=== PATIENT | male | born 1970 | race Hispanic/Latino ===

== ENCOUNTER 2018-02-15 15:58 | Emergency (ER) | payer BC, OTHER ==
[~2018-02-15] VITALS: Ht 170.2 cm; Wt 70.8 kg
[~2018-02-15 15:58] MED LIST: AMLODIPINE BESY10 MG PO; CALCITRIOL0.5 MCG PO; CATAPRES-TTS 21 EACH TD; CLONAZEPAM0.5 MG PO; CLONIDINE HCL0.2 MG PO; DEXILANT60 MG PO; GABAPENTIN100 MG PO; HYDRALAZINE HCL25 MG PO; LANTUS100 UNITS/ SQ; LASIX20 MG PO; LIPITOR20 MG PO; METOPROLOL TART50 MG PO; REGLAN10 MG PO; RENAGEL800 MG PO; SUCRALFATE1 GM PO
--- OUTSIDE RECORDS SUMMARY | 2018-02-15 16:01 | XMS REPORT | Clinical Summary ---
Author Author [facility]osh [facility] Organization [facility] Address Unknown Phone Unavailable Care Team Providers Care Multi Craft Maintenance Technician Name Role Phone Asked, No Pcp PCP Unavailable Allergies No Known Allergies Current Medications Prescription Sig. Disp. Refills Start End Date Status Date metoclopramide (REGLAN) Take 10 mg by mouth Active 10 MG tablet daily. metoprolol succinate XL Take 50 mg by mouth Active (TOPROL-XL) 50 mg 24 hr daily. tablet hydrALAZINE (APRESOLINE) Take 100 mg by mouth 3 Active 100 MG tablet (three) times a day. clonIDINE (CATAPRES-TTS) Place 1 patch on the skin Active 0.2 mg/24 hr once a week. sevelamer (RENVELA) 800 Take 2,400 mg by mouth 3 Active mg tablet (three) times a day with meals. promethazine (PHENERGAN) Take 25 mg by mouth as Active 25 MG tablet needed for nausea or vomiting. insulin GLARGINE (LANTUS) Inject 17 Units under the Active 100 unit/mL injection skin as needed. (vial) furosemide (LASIX) 20 mg Take 20 mg by mouth Active tablet daily. omeprazole (PriLOSEC) 40 Take 40 mg by mouth Active MG capsule daily. ergocalciferol (VITAMIN Take 50,000 Units by Active D2) 50,000 unit capsule mouth once a week. GABAPENTIN ORAL Take 1 tablet by mouth Active nightly. TRAMADOL HCL (TRAMADOL Take 1 tablet by mouth as Active ORAL) needed. FLUoxetine (PROzac) 20 MG Take 1 capsule (20 mg 30 capsule 1 08/15/19 09/14/19 capsule total) by mouth daily for 18 18 30 days. Active Problems Patient Care Coordination Note UNOS SS#: [id number] Problem Noted Date MDD (major depressive disorder), recurrent severe, without psychosis ([facility]) 08/15/2017 ESRD (end stage renal disease) on dialysis (HCC) 02/08/2017 History of diabetic gastroparesis 02/08/2017 Anemia 02/08/2017 Chronic bilateral low back pain with sciatica 02/08/2017 History of transfusion 06/07/2016 Hypertension 04/09/2010 Type 2 diabetes mellitus (HCC) 04/09/2001 Encounters Date Type Specialty Care Team Description 01/15/2018 Hospital Transplant Carlota Cavazos MD Encounter 01/11/2018 Documentation Transplant Taylor Somers Appointment (Itinerary for Kidney Transplant Waitlist Listing Class scheduled 01-15-2018 ([place]ese Class) emailed to patient & scanned in Media. ) 01/09/2018 Telephone Transplant Alexis Michelle Listing Class (Spoke to pt he confirmed he will be here on Sunday@ 1:00 pm for listing class.) 12/24/2017 Lab Lab Carlota Cavazos MD 12/19/2017 Documentation Transplant Taylor Somers PRA Kits (Patient's address updated to reflect [id number] by eugene Rosado coordinator. PRA kits requested yesterday and order edited by Myrna blair Affine. New Standing Order scanned in Media. Pt should rcvd supplieswithin 3-5 bus/days. ) 12/19/2017 Telephone Transplant Giovanna Castillo MA Patient Update Questions 12/18/2017 Abstract Transplant Taylor Somers 12/18/2017 Abstract Transplant Taylor Somers 12/18/2017 Documentation Transplant Taylor Somers PRA Kits (Requested PRA kits to be sent to patient's home address @ [address], [place] [address]. Standing Order scanned in Media. Call pt's home [phone] to inquire if he was available to come for Waitlist Listing Class. Pt states he does not speak [place]. Wll call back @ a later date with an bottom scrubber. ) 12/14/2017 Telephone Transplant Aurora Peña MA Waitlist Status Update 11/26/2017 Telephone Transplant Aurora Peña MA Txp Status Update 11/26/2017 Telephone Transplant Samra Huertas MA Donor workup 11/01/2017 Telephone Transplant Samra Huertas MA Pt's donor 11/01/2017 Documentation Transplant Luz Moreno RN SS# 10/30/2017 Telephone Transplant Aurora Peña MA Request Txp Status Update 10/04/2017 Documentation Transplant Maryam Moody 10/02/2017 Telephone Transplant Gabby Miller MA Speak with Coordinator 10/02/2017 Telephone Transplant Aster Loving MA Status Update Request 09/26/2017 Documentation Transplant Maryam Moody 09/26/2017 Documentation Transplant Michelle Nesbitt MRB packet 09/27/17 (MRB packet 09/27/17 scanned in media. ) 09/24/2017 Documentation Transplant Luz Moreno RN mrb packet 09/24/2017 Documentation Transplant Taylor Somers Kidney Transplant Evaluation Status (Per review, patient has completed kidney evaluation. Clinical placed in line to be final reviewed by Luz and possibly presented to [facility]. ) 09/17/2017 Telephone Transplant Aster Loving MA Speak to Coordinator 09/17/2017 Documentation Transplant Taylor Somers H& P : Dr. Morena Hamilton - / Renal Care - 07-16-2017 (Scanned Health & Physical Clearance Letter from Dr. Morena Crouch (nephrology) from / Renal Care dated 07-16-2017 in Media. ) 09/14/2017 Telephone Transplant Samra Huertas MA Faxing HMP 09/11/2017 Telephone Transplant Aurora Peña MA Request Status Update 09/10/2017 Documentation Transplant Taylor Somers Cardiology Clearance Letter : 08-13-2017 (Scanned Cardiology Clearance Letter dated 08-13-[address] Griffiths in Media.) 08/28/2017 Documentation Transplant Taylor Somers Urology Clearance Letter 08-14-2017 (Scanned Urology Clearance Letter dated 08-14-[address] Israel's office in Media.) 08/14/2017 Hospital Transplant Carlota Cavazos MD MDD (major depressive Encounter disorder), recurrent severe, without psychosis (Primary Dx) 08/10/2017 Telephone Transplant Aster Loving MA Itinerary Request 07/31/2017 Hospital Radiology Carlota Cavazos MD ESRD (end stage renal Encounter disease) 07/31/2017 Hospital Transplant Carlota Cavazos MD ESRD (end stage renal Encounter disease) 07/26/2017 Documentation Transplant Taylor Somers appts (Scanned Kidney Transplant Eval Appts Day 2 - 07-31-2017 & Day 3 - 08-14-2017 in Media. 07-26-2017. Apptsd emailed to spouse address @ [email or web address] ) 07/23/2017 Documentation Transplant Taylor Somers Appointment (Spk w the spouse Shama @ [phone] per pt's request regarding scheduling the remaining of Kidney Transplant Eval now that pt''s ins has been reinstated. Spouse states she has just startred a new job and would like him to be schedule patient on Tuesdays. Pt Day 2 scheduled July 31 for Cardiology Consult/Stress Test w Dr. Griffiths and CTA Abdomen/Pelvis. Called spouse back to inform her of appt date given. Spouse states appt date ok. Will also schedule Day 3 -and email both appts to spouse email ) 07/23/2017 Abstract Transplant Taylor Somers 07/20/2017 Documentation Transplant Maryam Moody 07/19/2017 Documentation Transplant Taylor Somers Updated ins info (Referred to financial supervisor to verify new ins info from BC/BS provided by patient's spouse. Once ins is verified patient will be scheduled for remaining kidney transplant evaluation (Day 2 & 3). Made a call to Merry @ [phone], /S Renal to get location and other dialysis info needed but no one answered the ph. Will try later. Also called pt's spouse Shama , no answer. Called pt's home # no answer and v/m is not set up. Will f/up with 3-5 bus/ days. ) 06/29/2017 Telephone Transplant Gabby Miller MA Updated Insurance 06/29/2017 Telephone Transplant Gabby Miller MA Scheduling 06/20/2017 Telephone Transplant Aurora Peña MA Request Status Update 05/08/2017 Orders Only Transplant Apolinar Feliciano RN ESRD (end stage renal disease) (Primary Dx) 05/07/2017 Documentation Transplant Maryam Moody 03/27/2017 Hospital Transplant Shahzad Jang MD Canceled (Scheduling Encounter Priscilla Yin Error) 03/27/2017 [facility] Radiology Carlota Cavazos MD ESRD (end stage renal Encounter disease) 03/27/2017 [facility] Radiology Carlota Cavazos MD ESRD (end stage renal Encounter disease) 03/27/2017 Hospital Transplant Shahzad Jang MD ESRD (end stage renal Encounter disease) 03/27/2017 [facility] Procedural Cardiology Carlota Cavazos MD ESRD (end stage renal Encounter disease) 03/27/2017 Hospital Transplant Shahzad Jang MD Encounter Maryam Moody 03/27/2017 Hospital Transplant Shahzad Jang MD Encounter 02/27/2017 Hospital Transplant Shahzad Jang MD No Show Encounter Priscilla Yin 02/27/2017 Hospital Transplant Shahzad Jang MD No Show Encounter 02/27/2017 Telephone Transplant Gabby Miller MA Reschedule Appointments after 02/14/2017 Family History Medical History Relation Name Comments Diabetes Maternal Grandmother Diabetes Mother Relation Name Status Comments Maternal Grandmother Mother Social History Tobacco Use Types Packs/Day Years Used Date Never Smoker Smokeless Tobacco: Never Used Sex Assigned at Date Recorded Not on file Last Filed Vital Signs Vital Sign Reading Time Taken Blood Pressure 104/60 08/14/2017 9:27 AM CDT Pulse 73 08/14/2017 9:27 AM CDT Temperature 35.9 C (96.7 F) 08/14/2017 9:27 AM CDT Respiratory Rate 16 08/14/2017 9:27 AM CDT Oxygen Saturation 98% 08/14/2017 9:27 AM CDT Inhaled Oxygen - - Concentration Weight 65.2 kg (143 lb 11.2 oz) 08/14/2017 9:27 AM CDT Height 172.7 cm (5' 8") 08/14/2017 9:27 AM CDT Body Mass Index 21.85 08/14/2017 9:27 AM CDT Plan of Treatment Health Maintenance Due Date Last Done Comments DIABETIC RETINAL EYE EXAM 1971 DIABETIC FOOT EXAM 1981 URINE MICROALBUMIN 1981 INFLUENZA VACCINE 11/07/2017 Procedures Procedure Name Priority Date/Time Associated Diagnosis Comments SINGLE ANTIGEN BEADS Routine 12/24/2017 Results for this 7:15 AM CDT procedure are in the results section. CT ANGIOGRAM ABDOMEN Routine 07/31/2017 ESRD (end stage renal Results for this PELVIS W AND OR WO 1:43 PM CDT disease) procedure are in the CONTRAST results section. C1Q CLASS 1 & 2 ANTIBODY Routine 07/31/2017 Results for this 10:00 AM CDT procedure are in the results section. HLA AUTOLOGOUS Routine 07/31/2017 Results for this CROSSMATCH, AHG 10:00 AM CDT procedure are in the results section. SINGLE ANTIGEN BEADS Routine 07/31/2017 Results for this 10:00 AM CDT procedure are in the results section. LOW RESOLUTION FULL Routine 07/31/2017 Results for this TYPING BY SSO 10:00 AM CDT procedure are in the results section. A1 ANTIGEN PATIENT TYPING Routine 07/31/2017 Results for this 10:00 AM CDT procedure are in the results section. ZZESTIMATED GFR Routine 07/31/2017 Results for this 10:00 AM CDT procedure are in the results section. ABORH - TRANSPLANT Routine 07/31/2017 ESRD (end stage renal Results for this 10:00 AM CDT disease) procedure are in the results section. PARATHYROID HORMONE Routine 07/31/2017 ESRD (end stage renal Results for this 10:00 AM CDT disease) procedure are in the results section. HSV TYPE 1/2 COMBINED AB, Routine 07/31/2017 ESRD (end stage renal Results for this IGM 10:00 AM CDT disease) procedure are in the results section. HSV 1 & 2 GLYCOPROTEIN G Routine 07/31/2017 ESRD (end stage renal Results for this AB, IGG 10:00 AM CDT disease) procedure are in the results section. HERPES SIMPLEX VIRUS BY Routine 07/31/2017 ESRD (end stage renal Results for this PCR 10:00 AM CDT disease) procedure are in the results section. JONO-SILVA VIRUS Routine 07/31/2017 ESRD (end stage renal Results for this ANTIBODY TEST 10:00 AM CDT disease) procedure are in the results section. CYTOMEGALOVIRUS AB, IGM Routine 07/31/2017 ESRD (end stage renal Results for this 10:00 AM CDT disease) procedure are in the results section. CYTOMEGALOVIRUS AB, IGG Routine 07/31/2017 ESRD (end stage renal Results for this 10:00 AM CDT disease) procedure are in the results section. HEMOGLOBIN A1C Routine 07/31/2017 ESRD (end stage renal Results for this 10:00 AM CDT disease) procedure are in the results section. LDH Routine 07/31/2017 ESRD (end stage renal Results for this 10:00 AM CDT disease) procedure are in the results section. PHOSPHORUS LEVEL Routine 07/31/2017 ESRD (end stage renal Results for this 10:00 AM CDT disease) procedure are in the results section. CREATININE LEVEL Routine 07/31/2017 ESRD (end stage renal Results for this 10:00 AM CDT disease) procedure are in the results section. FASTING GLUCOSE LEVEL Routine 07/31/2017 ESRD (end stage renal Results for this 10:00 AM CDT disease) procedure are in the results section. TRIGLYCERIDES Routine 07/31/2017 ESRD (end stage renal Results for this 10:00 AM CDT disease) procedure are in the results section. CHOLESTEROL Routine 07/31/2017 ESRD (end stage renal Results for this 10:00 AM CDT disease) procedure are in the results section. US RENAL Routine 03/27/2017 ESRD (end stage renal Results for this 12:42 PM ADMISSIONS DIRECTOR disease) procedure are in the results section. XR CHEST 2 VW Routine 03/27/2017 ESRD (end stage renal Results for this 11:32 AM ADMISSIONS DIRECTOR disease) procedure are in the results section. ECHOCARDIOGRAM 2D Routine 03/27/2017 ESRD (end stage renal Results for this COMPLETE W MMODE SPECTRAL 10:31 AM ADMISSIONS DIRECTOR disease) procedure are in the COLOR DOPPLER (01429) results section. ECG 12-LEAD Routine 03/27/2017 ESRD (end stage renal Results for this 8:49 AM ADMISSIONS DIRECTOR disease) procedure are in the results section. after 02/14/2017 Results * Single antigen beads (12/24/2017 7:15 AM) Only the most recent of 2 results within the time period is included. [facility] DEPARTMENT OF PATHOLOGY AND GENOMIC MEDICINE Single antigen beads See link below for PDF Lab [facility] DEPARTMENT OF Report PATHOLOGY AND GENOMIC MEDICINE Performing Organization Address City/State/Zipcode Phone Number [facility] DEPARTMENT OF [address] [place] [address] PATHOLOGY AND GENOMIC MEDICINE * CTA Abdomen Pelvis W And Or Wo Contrast (07/31/2017 1:43 PM) Narrative Performed At EXAM: [facility] CT ANGIOGRAM ABDOMEN PELVIS W AND OR WO CONTRAST INDICATION: N18.6 End stage renal disease, Renal Transplant Evaluation COMPARISON: None. TECHNIQUE: After administration of iodinated contrast intravenously, axial CT images of the abdomen and pelvis were obtained. Coronal and sagittal reformations were obtained. 3-D volumetric reconstructions of the arterial system was obtained. Iterative reconstruction and/or automated exposure control techniques were employed to reduce radiation dose. FINDINGS: Limited chest: Small amount of fluid and debris within the lower esophagus, which may be suggestive of gastroesophageal reflux. Top normal heart size. Calcified atherosclerotic plaque left main and proximal left anterior descending coronary arteries. Small pericardial effusion. No adenopathy visualized portions of the chest. Minimal linear opacity lingula, discoid atelectasis versus scar. Minimal bibasilar dependent atelectasis. Moderate gynecomastia bilaterally. Abdomen: Liver is normal. Status post cholecystectomy. Common bile duct is unremarkable. Pancreas is normal. Spleen is normal. Bilateral adrenals are normal. Moderate bilateral renal cortical atrophy, compatible with history of end-stage renal disease. Gastric stimulator right upper quadrant anterior abdominal subcutaneous fat. Stimulator leads along the anterior aspect of the gastric antrum. Large amount of fluid and debris within the stomach. Constellation of findings are suggestive of history of gastroparesis. Duodenum is normal. Remainder of small bowel is normal. Appendix is normal (series 2, slice 128). Surgical clip along the right anterolateral aspect of the cecum is 94). Colon is normal. Pelvis: Small amount of urine bladder limits full evaluation of bladder wall. Prostate is normal. Calcification of the vas deferens, compatible with history of diabetes/hypercalcemic state. Bilateral inguinal canals and ischiorectal fossa are normal. Musculoskeletal: Minimal degenerative changes of the thoracolumbar spine. Minimal arthrosis bilateral hips. Bone island right femoral head (series 2, slice 173). No suspicious osseous or soft tissue structures. Vascular: Descending thoracic aorta: Minimal tortuosity. Otherwise normal in caliber. Abdominal aorta: Normal course and caliber. Celiac axis: Conventional celiac arterial anatomy. Minimal calcified atherosclerotic plaque proximal common hepatic and splenic artery without significant associated luminal narrowing. Superior mesenteric artery: Normal course and caliber. Bilateral renal arteries: Solitary arteries bilaterally. Mild wall calcifications distally. Otherwise normal course and caliber. Inferior mesenteric artery: Mild wall calcification without significant luminal narrowing. Otherwise normal course and caliber. Right common iliac artery: Normal course and caliber. Right internal iliac artery: Mild to moderate wall calcification/plaque plaque greatest distally with mild multifocal luminal narrowing. Right external iliac artery: Normal in course and caliber. Moderate circumferential wall calcification of the deep inferior epigastric artery at its origin. Visualized right femoral arteries: Moderate circumferential wall calcification of the superficial and profunda femoris arteries without significant associated luminal narrowing. Left common iliac artery: Normal course and caliber. Left internal iliac artery: Mild to moderate wall calcification/plaque greatest distally with mild multifocal luminal narrowing. Left external iliac artery: Normal course and caliber. Visualized left femoral arteries: Moderate circumferential wall calcification of the superficial profunda femoris arteries without significant associated luminal narrowing. Full evaluation of systemic and portal venous structures limited by contrast bolus timing. 8 mm short axis gastrohepatic lymph node (series 2, slice 48). No abdominal, pelvic, or inguinal adenopathy. IMPRESSION: 1. Bilateral common iliac and external iliac arteries are normal without significant wall calcification, atherosclerotic plaque, dissection, or aneurysm. 2. Of moderate atrophy bilateral renal cortices. 3. Gastric stimulator right upper quadrant with leads along the anterior aspect of the gastric antrum. Large amount of fluid and debris within the stomach. Constellation findings are compatible with history of gastroparesis. 4. Small amount of fluid debris within the lower esophagus, suggestive of gastroesophageal reflux. 5. Calcified atherosclerotic plaque left main and proximal left anterior descending coronary arteries. [facility]-[id number] Procedure Note Hm Interface, Radiology Results Incoming - 07/31/2017 2:34 PM CDT EXAM: CT ANGIOGRAM ABDOMEN PELVIS W AND OR WO CONTRAST INDICATION: N18.6 End stage renal disease, Renal Transplant Evaluation COMPARISON: None. TECHNIQUE: After administration of iodinated contrast intravenously, axial CT images of the abdomen and pelvis were obtained. Coronal and sagittal reformations were obtained. 3-D volumetric reconstructions of the arterial system was obtained. Iterative reconstruction and/or automated exposure control techniques were employed to reduce radiation dose. FINDINGS: Limited chest: Small amount of fluid and debris within the lower esophagus, which may be suggestive of gastroesophageal reflux. Top normal heart size. Calcified atherosclerotic plaque left main and proximal left anterior descending coronary arteries. Small pericardial effusion. No adenopathy visualized portions of the chest. Minimal linear opacity lingula, discoid atelectasis versus scar. Minimal bibasilar dependent atelectasis. Moderate gynecomastia bilaterally. Abdomen: Liver is normal. Status post cholecystectomy. Common bile duct is unremarkable. Pancreas is normal. Spleen is normal. Bilateral adrenals are normal. Moderate bilateral renal cortical atrophy, compatible with history of end-stage renal disease. Gastric stimulator right upper quadrant anterior abdominal subcutaneous fat. Stimulator leads along the anterior aspect of the gastric antrum. Large amount of fluid and debris within the stomach. Constellation of findings are suggestive of history of gastroparesis. Duodenum is normal. Remainder of small bowel is normal. Appendix is normal (series 2, slice 128). Surgical clip along the right anterolateral aspect of the cecum is 94). Colon is normal. Pelvis: Small amount of urine bladder limits full evaluation of bladder wall. Prostate is normal. Calcification of the vas deferens, compatible with history of diabetes/hypercalcemic state. Bilateral inguinal canals and ischiorectal fossa are normal. Musculoskeletal: Minimal degenerative changes of the thoracolumbar spine. Minimal arthrosis bilateral hips. Bone island right femoral head (series 2, slice 173). No suspicious osseous or soft tissue structures. Vascular: Descending thoracic aorta: Minimal tortuosity. Otherwise normal in caliber. Abdominal aorta: Normal course and caliber. Celiac axis: Conventional celiac arterial anatomy. Minimal calcified atherosclerotic plaque proximal common hepatic and splenic artery without significant associated luminal narrowing. Superior mesenteric artery: Normal course and caliber. Bilateral renal arteries: Solitary arteries bilaterally. Mild wall calcifications distally. Otherwise normal course and caliber. Inferior mesenteric artery: Mild wall calcification without significant luminal narrowing. Otherwise normal course and caliber. Right common iliac artery: Normal course and caliber. Right internal iliac artery: Mild to moderate wall calcification/plaque plaque greatest distally with mild multifocal luminal narrowing. Right external iliac artery: Normal in course and caliber. Moderate circumferential wall calcification of the deep inferior epigastric artery at its origin. Visualized right femoral arteries: Moderate circumferential wall calcification of the superficial and profunda femoris arteries without significant associated luminal narrowing. Left common iliac artery: Normal course and caliber. Left internal iliac artery: Mild to moderate wall calcification/plaque greatest distally with mild multifocal luminal narrowing. Left external iliac artery: Normal course and caliber. Visualized left femoral arteries: Moderate circumferential wall calcification of the superficial profunda femoris arteries without significant associated luminal narrowing. Full evaluation of systemic and portal venous structures limited by contrast bolus timing. 8 mm short axis gastrohepatic lymph node (series 2, slice 48). No abdominal, pelvic, or inguinal adenopathy. IMPRESSION: 1. Bilateral common iliac and external iliac arteries are normal without significant wall calcification, atherosclerotic plaque, dissection, or aneurysm. 2. Of moderate atrophy bilateral renal cortices. 3. Gastric stimulator right upper quadrant with leads along the anterior aspect of the gastric antrum. Large amount of fluid and debris within the stomach. Constellation findings are compatible with history of gastroparesis. 4. Small amount of fluid debris within the lower esophagus, suggestive of gastroesophageal reflux. 5. Calcified atherosclerotic plaque left main and proximal left anterior descending coronary arteries. [facility]-[id number] Performing Organization Address City/State/[place]code [place] [address] * Low resolution full typing by SSO (07/31/2017 10:00 AM) [facility] DEPARTMENT OF PATHOLOGY AND GENOMIC MEDICINE Low resolution full See link below for PDF Lab [facility] DEPARTMENT OF typing by SSO Report PATHOLOGY AND GENOMIC MEDICINE Performing Organization Address City/[facility] Phone Number [facility] [place] [address] PATHOLOGY AND GENOMIC MEDICINE * C1Q class 1 & 2 antibody (07/31/2017 10:00 AM) [facility] DEPARTMENT OF PATHOLOGY AND GENOMIC MEDICINE C1Q class 1 & 2 antibody See link below for PDF Lab [facility] DEPARTMENT OF Report PATHOLOGY AND GENOMIC MEDICINE Performing Organization Address [facility] Phone Number [facility] [place] [address] PATHOLOGY AND GENOMIC MEDICINE * A1 antigen patient typing (07/31/2017 10:00 AM) A1 Antigen Patient Typing POS [facility] DEPARTMENT OF PATHOLOGY AND GENOMIC MEDICINE Performing Organization Address City/[facility] Phone Number [facility] [place] [address] PATHOLOGY AND GENOMIC MEDICINE * HSV 1 & 2 glycoprotein G Ab, IgG (07/31/2017 10:00 AM) HSV 1 glycoprotein G Ab, Positive (A) Negative [facility] DEPARTMENT OF IgG Comment: PATHOLOGY AND Positive results may indicate [facility] current or past HSV infection. For acute illness, viral PCR and IgM testing are recommended. Individuals infected with HSV may not exhibit detectable antibodies in cases of early infection. HSV 2 glycoprotein G Ab, NegativeComment: Negative: No Negative [facility] DEPARTMENT OF IgG IgG antibodies to HSV2 PATHOLOGY AND detected. [facility] Specimen Serum Performing Organization Address City/[facility] Phone Number [facility] [place] [address] PATHOLOGY AND GENOMIC MEDICINE * Jono-Silva virus antibody test (07/31/2017 10:00 AM) EBV Ab to viral capsid POSITIVE (A) Negative [facility] DEPARTMENT OF Ag, IgG PATHOLOGY AND GENOMIC MEDICINE EBV Ab to viral capsid Negative Negative [facility] DEPARTMENT OF Ag, IgM PATHOLOGY AND GENOMIC MEDICINE EBV Ab to nuclear Ag, IgG POSITIVE (A) Negative [facility] DEPARTMENT OF PATHOLOGY AND GENOMIC MEDICINE EBV Ab to early (D) Ag, POSITIVE (A) Negative [facility] DEPARTMENT OF IgG Comment: PATHOLOGY AND Interpretive Information: GENOMIC MEDICINE Infection StatusVCA_IgG No Previous_ Acute + Recent + Past + Reactivation + Infection StatusVCA_IgM No Previous_ Acute + Recent +/- Past - Reactivation +/- Infection Status EA No Previous_ Acute +/- Recent +/- Past - Reactivation + Infection Status EBNA No Previous_ Acute - Recent +/- Past + Reactivation + Specimen Serum Performing Organization Address City/[facility] Phone Number [address] [address] PATHOLOGY AND GENOMIC MEDICINE * HSV type 1/2 combined Ab, IgM (07/31/2017 10:00 AM) HSV 1/2 combined Ab, IgM 0.45 <=0.89 IV [facility] Comment: INTERPRETIVE INFORMATION: Herpes Simplex Virus Type 1 and/or 2 Antibodies, IgM by KAT 0.89 IV or Less .......... Not Detected 0.90 - 1.09 IV ........... Indeterminate- Repeat testing in 10-14 days may be helpful. 1.10 IV or Greater ....... Detected-IgM antibody to HSV detected, which may indicate a current or recent infection. However, low levels of IgM antibodies may occasionally persist for more than 12 months post-infection. Performed by [email or web address], [address] [place], [place] [id number] [email or web address] Arron Oro MD - Lab. Director Specimen Serum Performing Organization Address City/State/Zipcode Phone Number [facility] [address] [place] [address] * HLA autologous crossmatch, [facility] (07/31/2017 10:00 AM) [facility] DEPARTMENT OF PATHOLOGY AND GENOMIC MEDICINE HLA autologous crossmatch See link below for PDF Lab [facility] DEPARTMENT OF Report PATHOLOGY AND GENOMIC MEDICINE Performing Organization Address City/State/Zipcode Phone Number [facility] DEPARTMENT [address] [address] PATHOLOGY AND GENOMIC MEDICINE * Herpes simplex virus by PCR (07/31/2017 10:00 AM) Herpes virus, PCR Not-Detected Not-Detected [facility] DEPARTMENT OF PATHOLOGY AND GENOMIC MEDICINE Herpes virus, PCR See link below for PDF Lab [facility] DEPARTMENT OF ReportComment: Case Number: PATHOLOGY AND [id number] GENOMIC MEDICINE Performing Organization Address City/State/Zipcode Phone Number [facility] [place] [address] PATHOLOGY AND GENOMIC MEDICINE * Estimated GFR (07/31/2017 10:00 AM) GFR Non Af Amer 6 (A) mL/min/1.73 m2 [facility] DEPARTMENT OF PATHOLOGY AND GENOMIC MEDICINE GFR Af Amer 7 (A) mL/min/1.73 m2 [facility] DEPARTMENT OF Comment: PATHOLOGY AND Chronic kidney disease: <60 GENOMIC MEDICINE mL/min/1.73m2 Kidney failure: <15 mL/min/1.73m2 The estimated GFR is calculated from the IDMS-traceable Modification of Diet in Renal Disease Equation. The accuracy of the calculation is poor when the creatinine is normal. Calculated values >90 mL/min/1.73m2 are not reported. This equation has not been validated in children (<18 years), women, the elderly (>70 years), or ethnic groups other than Caucasians and Americans. Specimen Plasma specimen Performing Organization Address [facility] Facilitycode [place] [address] PATHOLOGY AND GENOMIC MEDICINE * Cytomegalovirus Ab, IgM (07/31/2017 10:00 AM) Cytomegalovirus Ab, IgM NegativeComment: Negative: CMV Negative [facility] DEPARTMENT OF IgM antibodies were not PATHOLOGY AND detected. GENOMIC MEDICINE Specimen Serum Performing Organization Address City/[facility]/[place] [address] PATHOLOGY AND GENOMIC MEDICINE * ABORh - transplant (07/31/2017 10:00 AM) ABO grouping A [facility] DEPARTMENT OF PATHOLOGY AND GENOMIC MEDICINE Rh type POS [facility] DEPARTMENT OF PATHOLOGY AND GENOMIC MEDICINE Specimen Blood Performing Organization Address City/State/Zipcode Phone Number [facility] [place] [address] PATHOLOGY AND GENOMIC MEDICINE * Cytomegalovirus Ab, IgG (07/31/2017 10:00 AM) Cytomegalovirus Ab, IgG Positive (A) Negative [facility] DEPARTMENT OF Comment: PATHOLOGY AND Positive; IgG antibody to CMV [facility] detected which may indicate exposure to CMV infection. Specimen Serum Performing Organization Address [facility] Facility[facility] [place] [address] PATHOLOGY AND [facility] * Triglycerides (07/31/2017 10:00 AM) Triglycerides 151 (H) <150 mg/dL [facility] DEPARTMENT OF PATHOLOGY AND GENOMIC MEDICINE Specimen Plasma specimen Performing Organization Address [facility] [place] [address] PATHOLOGY AND [facility] * Phosphorus level (07/31/2017 10:00 AM) Phosphorus 6.7 (H) 2.4 - 4.5 mg/dL [facility] DEPARTMENT OF PATHOLOGY AND GENOMIC MEDICINE Specimen Plasma specimen Performing Organization Address [facility] Phone Number [facility] [place] [address] PATHOLOGY AND [facility] * Parathyroid hormone (07/31/2017 10:00 AM) PTH 417 (H) 15 - 65 pg/mL [facility] DEPARTMENT OF PATHOLOGY AND GENOMIC MEDICINE Specimen Blood Performing Organization Address [facility] [place] [address] PATHOLOGY AND [facility] MEDICINE * LDH (07/31/2017 10:00 AM) LDH 215 87 - 225 U/L [facility] DEPARTMENT OF PATHOLOGY AND GENOMIC MEDICINE Specimen Plasma specimen Performing Organization Address [facility] [place] [address] PATHOLOGY AND [facility] MEDICINE * Hemoglobin A1c (07/31/2017 10:00 AM) Hemoglobin A1C 6.1 (H) 4.0 - 5.6 % [facility] DEPARTMENT OF Comment: PATHOLOGY AND HbA1c cutoffs for diagnosing GENOMIC MEDICINE diabetes: 4.0% - 5.6%=normal 5.7% - 6.4%=increased risk for diabetes (prediabetes) >=6.5%=diabetes Goals for glycemic control (ADA 2016) < 7.0%Target for non adults with diabetes. More or less stringent targets may be appropriate for individual patients. <7.5% Target for Children and adolescents with type 1 diabetes. Specimen Blood Performing Organization Address City/State/Zipcode Phone Number [facility] DEPARTMENT OF [address] [place] [address] PATHOLOGY AND GENOMIC MEDICINE * Fasting glucose level (07/31/2017 10:00 AM) Glucose, fasting 142 (H) 65 - 99 mg/dL [facility] DEPARTMENT OF PATHOLOGY AND GENOMIC MEDICINE Specimen Blood Performing Organization Address City/[facility]/Zipcode Phone Number [facility] [place] [address] PATHOLOGY AND GENOMIC MEDICINE * Creatinine level (07/31/2017 10:00 AM) Creatinine 9.4 (H) 0.7 - 1.2 mg/dL [facility] DEPARTMENT OF PATHOLOGY AND GENOMIC MEDICINE Specimen Plasma specimen Performing Organization Address City/[facility] [place] [address] PATHOLOGY AND GENOMIC MEDICINE * Cholesterol (07/31/2017 10:00 AM) Cholesterol 166 <200 mg/dL [facility] DEPARTMENT OF PATHOLOGY AND GENOMIC MEDICINE Specimen Plasma specimen Performing Organization Address City/[facility] Phone Number [facility] [place] [address] PATHOLOGY AND [employer] MEDICINE * US Renal (03/27/2017 12:42 PM) Narrative Performed At EXAMINATION:US RENAL [facility] CLINICAL HISTORY:N18.6 End stage renal disease, Renal Transplant Evaluation COMPARISON:None. FINDINGS: The kidneys are generally normal in size and echogenicity. There is no evidence of solid renal mass, stone or hydronephrosis. The right kidney measures8.2 x 4.7 x 3.3 cm.. The left kidney measures8.7 x 4.4 x 3.7 cm.There is a 1.1 cm cyst.. Urinary bladder is not well distended for this examination. IMPRESSION: Normal renal ultrasound examination. [facility]-[id number] Procedure Note [facility], Radiology Results Incoming - 03/27/2017 1:09 PM ADMISSIONS DIRECTOR EXAMINATION: US RENAL CLINICAL HISTORY: N18.6 End stage renal disease, Renal Transplant Evaluation COMPARISON: None. FINDINGS: The kidneys are generally normal in size and echogenicity. There is no evidence of solid renal mass, stone or hydronephrosis. The right kidney measures 8.2 x 4.7 x 3.3 cm. . The left kidney measures 8.7 x 4.4 x 3.7 cm. There is a 1.1 cm cyst. . Urinary bladder is not well distended for this examination. IMPRESSION: Normal renal ultrasound examination. [facility]-[id number] Performing Organization Address [facility] Phone Number [facility] [address] [place] [address] * XR Chest 2 Vw (03/27/2017 11:32 AM) Narrative Performed At EXAMINATION:XR CHEST 2 VW RADIANT CLINICAL HISTORY:N18.6 End stage renal disease, Renal Transplant Evaluation IMPRESSION: Heart and mediastinum are normal. Lungs are clear. Pacing device is seen in the upper abdomen. [facility]-[id number] Procedure Note Interface, Radiology Results Incoming - 03/27/2017 11:51 AM ADMISSIONS DIRECTOR EXAMINATION: XR CHEST 2 VW CLINICAL HISTORY: N18.6 End stage renal disease, Renal Transplant Evaluation IMPRESSION: Heart and mediastinum are normal. Lungs are clear. Pacing device is seen in the upper abdomen. [facility]-[id number] Performing Organization Address [facility] Phone Number [facility] [address] [place] [address] * Echocardiogram complete w contrast and 3D if needed (03/27/2017 10:31 AM) Narrative Performed At [facility] Echocardiography Report [address] [place] [address] Pat.Name:SACHIN BRANCH Pat.ID:[id number] .Date: 03/27/2017Refer.MD:CARLOTA CAVAZOS MD Exam Time: 11:09:00 AM Study Type:Routine Echo Height:68inWeight:159lb BSA: 1.86 m2 DOBAge:1970,47Y Sex: MALEBP:121/68 HR:67 bpmSonogrphr: CICI Baron Pat. Stat.:OutpatientStudy Status:Final Echo Event ID:[id number] Order ID:[id number] Reason for Study:ESRD Procedures:2D Echo, Colorflow Doppler, Strain SUMMARY: LV EF is normal. Estimated EF is 55-59%. Diastolic dysfunction Grade II (Moderate): Impaired relaxation with elevated LV filling pressures. FINDINGS: LV: LV size is normal. There is mild concentric LV hypertrophy. LVEF is normal. Overall wall motion is normal. Estimated EFis 55-59%. RV: RV size is normal. RV systolic function is normal. LA: LA volume is severely enlarged. RA: RA size is normal. AO: Aortic root diameter is normal. KIMBERLY: No pericardial effusion. AV: No structural AV abnormalities noted. MV: No structural MV abnormalities noted. A trace of mitral regurgitation. PV: No structural PV abnormalities noted. TV: No structural TV abnormalities noted. Mild tricuspid regurgitation Pollack: Diastolic dysfunction Grade II (Moderate): Impaired relaxationwith elevated LV filling pressures. Other:Estimated PA systolic pressure is 31 mmHg, assuming a mean RAPof 5 mmHg. MEASUREMENTS: 2D Parasternal [place] LVOT 2.1 cmLA Ds3.9 cm LVIDd5.1 cmIndex2.7 cm/m Ao An3 cm LVIDs3.6 cmAo Rtd 3.2 cm Index1.7 cm/m LV%fs 29.4 % LV Tqpf606.2 g(122-174) IVSd 1.2 cmLVM Deebw692.7 g/m2 LVPWd1.2 cmRWT0.5 LA Sng Plane LA Area 26.5 cm2(8.8-23.4) LA Vol97.2 ml Index52.2 ml/m LA LngAx 6 cm RA Sng Plane RA Area 15.7 cm2(8.3-19.5) RA Vol38.4 ml Index20.7 ml/m RA LngAx 5.4 cm DOPPLER LVOT For Flow LVOT Area3.5 cm2 LVOT SV 83.7 ml MGEGqoFsk444.6 cm/sHR63.5 bpm LVOTpkPG 5.7 mmHgLVOT CO5.3 l/min LVOTmnPG 2.6 mmHgLVOT CI2.9 l/m/m2 LVOT TVI24.2 cm Signed 03/28/2017 03:55 PM Yelena Adame M.D. Procedure Note Interface, Radiology Results In - 03/28/2017 3:55 PM ADMISSIONS DIRECTOR Echocardiography Report [address] [place] [address] Pat.Name: SACHIN BRANCH Pat.ID: [id number] St.Date: 03/27/2017 Refer.MD: CARLOTA CAVAZOS MD Exam Time: 11:09:00 AM Study Type:Routine Echo Height: 68in Weight: 159lb BSA: 1.86 m2 Age: 11 1970,47Y Sex: MALE BP: 121/68 HR: 67 bpm Sonogrphr: CICI Baron Pat. Stat.:Outpatient Study Status:Final Echo Event ID:[id number] Order ID: [id number] Reason for Study:ESRD Procedures:2D Echo, Colorflow Doppler, Strain SUMMARY: LV EF is normal. Estimated EF is 55-59%. Diastolic dysfunction Grade II (Moderate): Impaired relaxation with elevated LV filling pressures. FINDINGS: LV: LV size is normal. There is mild concentric LV hypertrophy. LV EF is normal. Overall wall motion is normal. Estimated EF is 55-59%. RV: RV size is normal. RV systolic function is normal. LA: LA volume is severely enlarged. RA: RA size is normal. AO: Aortic root diameter is normal. KIMBERLY: No pericardial effusion. AV: No structural AV abnormalities noted. MV: No structural MV abnormalities noted. A trace of mitral regurgitation. PV: No structural PV abnormalities noted. TV: No structural TV abnormalities noted. Mild tricuspid regurgitation Pollack: Diastolic dysfunction Grade II (Moderate): Impaired relaxation with elevated LV filling pressures. Other: Estimated PA systolic pressure is 31 mmHg, assuming a mean RAP of 5 mmHg. MEASUREMENTS: 2D Parasternal [place] LVOT 2.1 cm LA Ds 3.9 cm LVIDd 5.1 cm Index 2.7 cm/m Ao An 3 cm LVIDs 3.6 cm Ao Rtd 3.2 cm Index 1.7 cm/m LV%fs 29.4 % LV Mass 241.2 g (122-174) IVSd 1.2 cm LVM Index 129.7 g/m2 LVPWd 1.2 cm RWT 0.5 LA Sng Plane LA Area 26.5 cm2 (8.8-23.4) LA Vol 97.2 ml Index 52.2 ml/m LA LngAx 6 cm RA Sng Plane RA Area 15.7 cm2 (8.3-19.5) RA Vol 38.4 ml Index 20.7 ml/m RA LngAx 5.4 cm DOPPLER LVOT For Flow LVOT Area 3.5 cm2 LVOT SV 83.7 ml LVOTpkVel 119.6 cm/s HR 63.5 bpm LVOTpkPG 5.7 mmHg LVOT CO 5.3 l/min LVOTmnPG 2.6 mmHg LVOT CI 2.9 l/m/m2 LVOT TVI 24.2 cm Signed 03/28/2017 03:55 PM Yelena Adame M.D. Performing Organization Address City/State/Zipcode Phone Number [facility] [address] [place] [address] * EKG 12-LEAD (03/27/2017 8:49 AM) Ventricular rate 61 [facility] Atrial rate 61 [facility] AL interval 170 [facility] QRSD interval 98 [facility] QT interval 468 [facility] QTC interval 471 [facility] P axis 1 65 [facility] QRS axis 1 20 [facility] T wave axis 83 [facility] EKG impression Normal sinus HM MUSE rhythm-Nonspecific ST and T wave abnormality-Abnormal ECG-No previous ECGs available- Performing Organization Address City/[facility] Phone Number [facility] MUSE [address] [place] [address] after 02/14/2017 Insurance Payer Benefit Subscriber ID Type Phone Address Plan / Group BCBS BCBS xxxxxxxxxxxx PPO CHOICE PPO/[place] CROSS PPO TIFFANYSACHIN Transplant Self 1970 Home: [address], [address] [place] [address]
[2018-02-15 18:06] LABS: BASOPHILS % 0.5 % (0.0-1.0); EOSINOPHILS # (AUTO) 0.1 (0.0-0.4); EOSINOPHILS % 1.9 % (0.0-6.0); HEMATOCRIT 37.1 % (38.2-49.6); HEMOGLOBIN 12.9 g/dL (14.0-18.0); LYMPHOCYTES # (AUTO) 1.5 (1.0-3.2); LYMPHOCYTES % 23.1 % (18.0-39.1); MEAN CORPUSCULAR HEMOGLOBIN 33.9 pg (28-32); MEAN CORPUSCULAR HGB CONC 34.8 g/dL (31-35); MEAN CORPUSCULAR VOLUME 97.6 fL (81-99); MONOCYTES # (AUTO) 0.5 (0.2-0.8); MONOCYTES % 7.9 % (4.4-11.3); NEUTROPHILS # (AUTO) 4.3 (2.1-6.9); NEUTROPHILS % 66.3 % (38.7-80.0); PLATELET COUNT 207 x10e3/uL (140-360); RED CELL DISTRIBUTION WIDTH 14.1 % (11.7-14.4)
[2018-02-15 18:18] LABS: ALBUMIN 4.4 g/dL (3.5-5.0); ALBUMIN/GLOBULIN RATIO 0.9 (0.8-2.0); ANION GAP 20.3 mmol/L (8-16); CALCIUM 10.2 mg/dL (8.4-10.2); CREATININE, SERUM 6.25 mg/dL (0.72-1.25); POTASSIUM 3.3 mmol/L (3.5-5.1)
[2018-02-15 20:14] LABS: CREATINE KINASE MB 0.6 ng/mL (0-5.0)
[2018-02-15] MEDS ORDERED: PANTOPRAZOLE 40 MG 10ML VIAL IV ONE (20:27)
[2018-02-15 21:27] VITALS: BP 150/101
== END 2018-02-15 21:35 | disposition home or self-care (01) ==
LOC: ER 15:58
DX: R10.13 Epigastric pain (principal); R11.2 Nausea with vomiting, unspecified; K29.50 Unspecified chronic gastritis without bleeding
CPT/HCPCS: 36415; 80053; 82150; 82550; 82553; 83690; 84484; 85025; 93005; 96374; 99284